=== PATIENT | female | born 1990 | race Two or more races ===

== ENCOUNTER 2016-06-24 18:23 | Emergency (ER) | payer BC ==
[~2016-06-24] VITALS: Ht 152.4 cm; Wt 77.1 kg
[2016-06-24 18:23] VITALS: BP 126/68
[~2016-06-24 18:23] MED LIST: LORA-258 PO; PARO10TA26 PO
[2016-06-24] MEDS ORDERED: LORAZEPAM 1 MG TABLET ONE (18:43)
[2016-06-24] MEDS ORDERED: LORAZEPAM 1 MG TABLET PO ONE (19:00)
== END 2016-06-24 18:51 | disposition home or self-care (01) ==
LOC: ER 18:26
DX: F41.9 Anxiety disorder, unspecified (principal); N83.202 Unspecified ovarian cyst, left side
CPT/HCPCS: 99284; A4606; Z7610

== ENCOUNTER 2016-11-12 06:22 | Emergency (ER) | payer BC ==
[~2016-11-12] VITALS: Ht 165.1 cm; Wt 77.1 kg
[2016-11-12] MEDS ORDERED: WATER FOR INJECTION,STERILE 10 ML ONE (06:47)
[2016-11-12] MEDS ORDERED: MAG HYDROX/AL HYDROX/SIMETH 30 ML UDC ONE (06:47)
[2016-11-12] MEDS ORDERED: PANTOPRAZOLE 40 MG VIAL ONE (06:47)
[2016-11-12] MEDS ORDERED: ONDANSETRON HCL/PF 4 MG/2 ML VIAL ONE (06:48)
[2016-11-12] MEDS ORDERED: LIDOCAINE VISCOUS 2% UD 15 ML UDC ONE (06:48)
[2016-11-12] MEDS ORDERED: IV NS 0.9% 1,000 ML ONE (06:48)
[2016-11-12 06:52] LABS: BASOPHILS % (AUTO) 0.4 % (0.0-2.0); EOSINOPHILS # (AUTO) 0.2 /CMM (0.0-0.7); EOSINOPHILS % (AUTO) 2.1 % (0.0-6.0); HEMATOCRIT 41 % (33-45); HEMOGLOBIN 13.9 g/dL (11.5-14.8); LYMPHOCYTES # (AUTO) 2.5 /CMM (0.8-4.8); LYMPHOCYTES % (AUTO) 25.9 % (20.0-44.0); MEAN CORPUSCULAR HEMOGLOBIN 27 PG (26.0-33.0); MEAN CORPUSCULAR HGB CONC 34 g/dl (31.0-36.0); MEAN CORPUSCULAR VOLUME 79 fL (82-100); MONOCYTES # (AUTO) 0.4 /CMM (0.1-1.30); MONOCYTES % (AUTO) 3.8 % (2.0-12.0); NEUTROPHILS # (AUTO) 6.5 /CMM (1.8-8.9); NEUTROPHILS % (AUTO) 67.8 % (43.0-81.0); PLATELET COUNT (AUTO) 463 /CMM (150-450); RDW COEFFICIENT OF VARIATION 13.3 (11.5-15.0); WHITE BLOOD COUNT (AUTO) 9.6 K/uL (4.3-11.0)
[2016-11-12 06:55] LABS: BILIRUBIN,URINE NEGATIVE (NEGATIVE); BLOOD, URINE TRACE Ery/uL (NEGATIVE); COLOR,URINE YELLOW (YELLOW); KETONES,URINE NEGATIVE (NEGATIVE); LEUKOCYTE ESTERASE ,URINE NEGATIVE (NEGATIVE); NITRITE, URINE NEGATIVE (NEGATIVE); PROTEIN,URINE NEGATIVE (NEGATIVE); UGLUCOSE NEGATIVE (NEGATIVE); UROBILINOGEN,URINE 0.2 EU/dL (0.2)
[2016-11-12 06:58] LABS: APPEARANCE,URINE HAZY (CLEAR)
[2016-11-12] MEDS ORDERED: ONDANSETRON HCL/PF 4 MG/2 ML VIAL IVP ONE (07:00)
[2016-11-12] MEDS ORDERED: LIDOCAINE VISCOUS 2% UD 15 ML UDC PO ONE (07:00)
[2016-11-12] MEDS ORDERED: PANTOPRAZOLE 40 MG VIAL IV ONE (07:00)
[2016-11-12] MEDS ORDERED: MAG HYDROX/AL HYDROX/SIMETH 30 ML UDC PO ONE (07:00)
[2016-11-12] MEDS ORDERED: IV NS 0.9% 1,000 ML BAG IV ONE (07:00)
[2016-11-12 07:06] LABS: BACTERIA,URINE None seen /HPF (None Seen); MUCUS,URINE Rare /LPF (None Seen); RBC,URINE 0-3 /HPF (0-2); SQUAMOUS EPITHELIAL CELL,UR Few /HPF (None Seen)
[2016-11-12 07:15] LABS: ALBUMIN 3.4 g/dL (3.4-5.0); BILIRUBIN,DIRECT 0.1 mg/dL (0.0-0.2); BILIRUBIN,TOTAL 0.2 mg/dL (0.2-1.0); CALCIUM, SERUM 8.8 mg/dL (8.5-10.1); CREATININE 0.6 mg/dL (0.6-1.3); POTASSIUM 3.8 mmol/L (3.5-5.1); TOTAL PROTEIN, SERUM 7.7 g/dL (6.4-8.2)
[2016-11-12 07:59] VITALS: BP 138/76
== END 2016-11-12 08:02 | disposition home or self-care (01) ==
LOC: ER 06:23
DX: K29.70 Gastritis, unspecified, without bleeding (principal); K62.5 Hemorrhage of anus and rectum; F32.9 Major depressive disorder, single episode, unspecified; F41.9 Anxiety disorder, unspecified; N83.202 Unspecified ovarian cyst, left side
CPT/HCPCS: 36415; 80048; 80076; 81001; 83690; 84703; 85025; 87086; 96361; 96374; 96375; 99284; A4606; C9113; J2405; J7030; Z7610; 81000-TC

== ENCOUNTER 2017-07-12 21:29 | Emergency (ER) | payer OTHER ==
[~2017-07-12] VITALS: Ht 162.6 cm; Wt 61.2 kg
[~2017-07-12 21:29] MED LIST changes: -PARO10TA26 PO; +PARO10TA86 PO
[2017-07-12 22:01] VITALS: BP 136/87
--- NOTE | 2017-07-12 23:20 | NUR ---
CALLED NO ANSWER IN [facility] AT [employer] STATES PT STATES SHE WAS GOING TO LEAVE PT DID NOT WANT TO WAIT
== END 2017-07-12 23:22 | disposition left against medical advice (07) ==
LOC: ER 21:29
DX: Z53.21 Procedure and treatment not carried out due to patient leaving prior to being seen by health care provider (principal)
CPT/HCPCS: A4606; Z7610

== ENCOUNTER 2017-11-08 22:39 | Emergency (ER) | payer OTHER ==
[~2017-11-08] VITALS: Ht 152.4 cm; Wt 78.0 kg
[2017-11-08 22:51] VITALS: BP 117/79
--- NOTE | 2017-11-09 00:15 | NUR ---
WENT INTO [facility] TO CALL FOR PT. NO RESPONSE
--- NOTE | 2017-11-09 00:42 | NUR ---
WENT INTO WAITING ROOM TO CALL FOR PATIENT. NO RESPONSE
--- NOTE | 2017-11-09 01:01 | NUR ---
PER ADMITTING PT LEFT.
== END 2017-11-09 01:06 | disposition left against medical advice (07) ==
LOC: ER 22:42
DX: Z53.21 Procedure and treatment not carried out due to patient leaving prior to being seen by health care provider (principal); R11.2 Nausea with vomiting, unspecified; R50.9 Fever, unspecified
CPT/HCPCS: A4606; Z7610

== ENCOUNTER 2021-06-06 10:41 | Emergency (ER) | payer SELFPAY ==
[~2021-06-06] VITALS: Ht 152.4 cm; Wt 65.8 kg
--- NOTE | 2021-06-06 10:47 | NUR ---
BIB [facility] FROM HOME C/O DIZZINESS AND NEAR SYNCOPE TODAY AND YESTERDAY. DENIES HX OF CARDIAC ISSUES. PT REPORTS HAD HER LAST MENSTRUAL PERIOD 3 DAYS AGO, HEAVIER THAN USUAL. SYSTOLIC BP IN THE 140s. AAOX4, SKIN WARM AND DRY, PULSES 2+ BILATERALLY. AWAITING MD FOR ALIX
[2021-06-06] MEDS: IV NS 0.9% 1,000 ML BAG IV ONE (11:30)
[2021-06-06 11:43] LABS: BASOPHILS # (AUTO) 0.1 K/uL (0.0-0.2); BASOPHILS % (AUTO) 0.7 % (0.0-2.0); EOSINOPHILS % (AUTO) 0.9 % (0.0-6.0); HEMATOCRIT 39 % (33-45); HEMOGLOBIN 12.9 g/dL (11.5-14.8); LYMPHOCYTES # (AUTO) 1.6 K/uL (0.8-4.8); LYMPHOCYTES % (AUTO) 18.3 % (20.0-44.0); MEAN CORPUSCULAR HGB CONC 33 g/dl (31.0-36.0); MEAN CORPUSCULAR VOLUME 81 fL (82-100); MONOCYTES # (AUTO) 0.4 K/uL (0.1-1.30); MONOCYTES % (AUTO) 5.1 % (2.0-12.0); NEUTROPHILS # (AUTO) 6.4 K/uL (1.8-8.9); PLATELET COUNT (AUTO) 463 K/uL (150-450); RED BLOOD CELL COUNT(AUTO) 4.87 MIL/uL (4.0-5.2); WHITE BLOOD COUNT (AUTO) 8.6 K/uL (4.3-11.0)
[2021-06-06 12:14] LABS: CALCIUM, SERUM 8.5 mg/dL (8.5-10.1); CARBON DIOXIDE 24 mmol/L (21-32); CHLORIDE 103 mmol/L (98-107); CREATININE 0.6 mg/dL (0.6-1.3); GLUCOSE 88 mg/dL (74-106); POTASSIUM 4.4 mmol/L (3.5-5.1); SODIUM SERUM 136 mmol/L (136-145); UREA NITROGEN, BLOOD 9 mg/dL (7-18)
[2021-06-06 13:11] VITALS: BP 113/75
--- NOTE | 2021-06-06 13:11 | NUR ---
IV removed. Catheter intact and site benign. Pressure and 4x4 applied to site. No bleeding noted. Patient discharged to home in stable condition. Written and verbal after care instructions given. Patient verbalizes understanding of instruction.
== END 2021-06-06 13:11 | disposition home or self-care (01) ==
LOC: ER 10:42
DX: R42 Dizziness and giddiness (principal); F41.9 Anxiety disorder, unspecified; J45.909 Unspecified asthma, uncomplicated
CPT/HCPCS: 36415; 80048; 84484; 84703; 85025; 93005; 96360; 99284; J7030

== ENCOUNTER 2023-09-14 21:36 | Emergency (ER) | payer SELFPAY ==
[~2023-09-14] VITALS: Ht 157.5 cm; Wt 72.6 kg
[2023-09-15] MEDS ORDERED: ACET325C7 PO (00:17)
[2023-09-15] MEDS ORDERED: AZIT1PAC9 PO (00:17)
[2023-09-15] MEDS ORDERED: IBUP-1955 PO (00:17)
[2023-09-15] MEDS ORDERED: BENZ1LOZ58 PO (00:17)
[2023-09-15] MEDS ORDERED: BENZ-13 PO (00:23)
[2023-09-15] MEDS ORDERED: ALBU8.5H8 INH (00:23)
[2023-09-15 00:38] VITALS: BP 131/79; TEMP 98.2; O2SAT 98
== END 2023-09-15 00:39 | disposition home or self-care (01) ==
LOC: ER 21:40
DX: J06.9 Acute upper respiratory infection, unspecified (principal); R10.2 Pelvic and perineal pain; J45.909 Unspecified asthma, uncomplicated; F41.9 Anxiety disorder, unspecified; Z79.899 Other long term (current) drug therapy; Z20.822 Contact with and (suspected) exposure to COVID-19
CPT/HCPCS: 36415; 71045-TC; 84702-TC; 86403-TC; 87070-TC

== ENCOUNTER 2024-07-13 17:54 | Emergency (ER) | payer MEDICAID ==
[~2024-07-13] VITALS: Ht 152.4 cm; Wt 69.4 kg
[~2024-07-13 17:54] MED LIST changes: +ACET325C7 PO; +ALBU8.5H8 INH; +AZIT1PAC9 PO; +BENZ-13 PO; +BENZ1LOZ58 PO; +IBUP-1955 PO
[2024-07-13 18:45] VITALS: BP 154/71; TEMP 98.2; O2SAT 100
[2024-07-13] MEDS ORDERED: ALPRAZOLAM 0.5 MG TABLET ONE (19:47)
[2024-07-13] MEDS: ALPRAZOLAM 0.5 MG TABLET PO ONE (19:48)
[2024-07-13] MEDS ORDERED: ALPR0.5T PO ×2 (20:28→20:45)
== END 2024-07-13 20:50 | disposition home or self-care (01) ==
LOC: ER 17:55
DX: F41.0 Panic disorder [episodic paroxysmal anxiety] (principal); R53.1 Weakness; R07.9 Chest pain, unspecified; R42 Dizziness and giddiness; J45.909 Unspecified asthma, uncomplicated; Z79.899 Other long term (current) drug therapy